=== PATIENT | male | born 1955 | race Caucasian/White ===

== ENCOUNTER 2021-12-14 10:12 | Outpatient (CLI) | payer MEDICARE, OTHER, SELFPAY ==
--- NOTE | 2021-12-14 10:49 | ECG_ITS ---
Measurements Intervals [place] Rate: 46 P: 80 NC: 300 QRS: -28 QRSD: 105 T: 29 QT: 423 QTc: 374 Interpretive Statements SINUS BRADYCARDIA WITH MARKED SINUS ARRHYTHMIA WITH FIRST DEGREE AV BLOCK VENTRICULAR PREMATURE COMPLEX BASELINE ARTIFACT- V4 ABNORMAL ECG NO PREVIOUS ECG AVAILABLE FOR COMPARISON Electronically Signed On 12-14-2021 11:35:51 CDT by Bryon June D.O.
[2021-12-14 11:09] LABS: Hematocrit 46.3 % (42.0-52.0)
[2021-12-14 11:20] LABS: Albumin Level 4.5 g/dL (3.5-5.1); Estimated Glomerular Filt Rate > 60; Glucose 103 mg/dL (65-110)
[2021-12-14 12:08] LABS: Urine Cotinine POSITIVE
[2021-12-14 12:14] LABS: Hemoglobin A1C 5.7 % (<5.7)
== END 2021-12-14 10:13 | disposition home or self-care (01) ==
PROVIDERS: PCP Family Medicine; Visit Provider Orthopaedic Surgery
DX: Z79.899 Other long term (current) drug therapy (principal); M17.12 Unilateral primary osteoarthritis, left knee; Z01.818 Encounter for other preprocedural examination; R94.31 Abnormal electrocardiogram [ECG] [EKG]
CPT/HCPCS: 80307; 82040; 82565; 82947; 83036; 85014; 85018; 93005

== ENCOUNTER 2022-01-24 08:40 | Outpatient (CLI) | payer MEDICARE, SELFPAY ==
[2022-01-24 09:40] LABS: Urine Cotinine NEGATIVE
== END 2022-01-24 08:41 | disposition home or self-care (01) ==
PROVIDERS: PCP Family Medicine; Visit Provider Orthopaedic Surgery
DX: Z79.899 Other long term (current) drug therapy (principal)
CPT/HCPCS: 80307

== ENCOUNTER 2022-02-27 11:38 | Outpatient (CLI) | payer MEDICARE, OTHER, SELFPAY ==
[2022-02-27 13:41] LABS: Basophils Percent Auto 0.6 % (0.2-1.2); Eosinophils Absolute Auto 0.3 K/mm3 (0-0.3); Eosinophils Percent Auto 3.7 % (0-4.4); Hematocrit 44.6 % (42.0-52.0); Hemoglobin 14.8 g/dL (14.0-18.0); Immature Granulocyte Absolute 0.01 K/mm3 (0.00-0.031); Immature Granulocyte Percent A 0.1 % (0-0.5); Lymphocytes Absolute Auto 1.28 K/mm3 (0.9-3.2); Lymphocytes Percent Auto 19.1 % (18.3-44.2); Mean Corpuscular HGB Conc 33.2 g/dl (32-36); Mean Corpuscular Hemoglobin 30.5 pg (26-34); Mean Corpuscular Volume 91.8 fl (80-100); Mean Platelet Volume 10.9 fl (7.4-10.4); Monocytes Absolute Auto 0.5 K/mm3 (0.1-0.6); Monocytes Percent Auto 7.3 % (2.6-8.5); Neutrophils Absolute Auto 4.6 K/mm3 (1.3-6.7); Neutrophils Percent Auto 69.2 % (45.5-73.1); Platelet Count Result 238 k/mm3 (150-375); Red Blood Count 4.86 M/mm3 (4.6-6.20); Red Cell Distribution Width 12.9 % (11.5-14.5); White Blood Count 6.7 K/mm3 (4.5-10.0)
[2022-02-27 13:54] LABS: Albumin Level 4.4 g/dL (3.5-5.1); Estimated Glomerular Filt Rate > 60; Glucose 102 mg/dL (65-110)
[2022-02-27 13:56] LABS: Hemoglobin A1C 5.8 % (<5.7)
== END 2022-02-27 11:39 | disposition home or self-care (01) ==
PROVIDERS: PCP Family Medicine; Visit Provider Orthopaedic Surgery
DX: M17.12 Unilateral primary osteoarthritis, left knee (principal); Z01.818 Encounter for other preprocedural examination
CPT/HCPCS: 36415; 82040; 82565; 82947; 83036; 85025; 87081

== ENCOUNTER 2022-03-27 01:48 | Day surgery (SDC) | payer MEDICARE, OTHER, SELFPAY ==
[2022-02-27 11:58] VITALS: BMI 27.3
--- NOTE | 2022-02-27 12:25 | PC.NURSE ---
Addendum entered by Rhonda Henderson RN 02/27/22 12:30: TOTAL JOINT CLASS 03/08/22 AT 10 AM Original Note: Report to the Outpatient Waiting Room, entrance under the green pavilion located off [address], at time _1000 on date __03/27/22 . Planned Procedure Time: __1200 . Time changes happen often and if your time is changed the preop area will call you the afternoon before. - You and your visitor will be asked to self-screen and do not enter if you have any COVID symptoms. - Only one visitor is requested with a max of two and NO children visitors are allowed at this time. - The patient visitor may be requested to leave or wait in car when not with patient due to distancing restrictions. - A mask is optional within the hospital. Patients may have clear liquids (water, carbonated beverages, clear teas, apple juice) until 3 hours prior to surgery with a maximum of 20 ounces. - No food from midnight until time of surgery - Infants may have breast milk until 4 hours before surgery, infant formula 6 hours prior to surgery. - Children will be allowed to drink immediately following surgery. If applicable, please bring a bottle or sippy cup to assist with drinking. Juice, water, soda, and popsicles are readily available. For infants on formula, please bring formula the day of surgery. Pacifiers are allowed. Take the following medications with a SIP of water the morning of surgery: NONE Medications to discontinue per physician ____PT STATES HOLD ALL VITAMINS AND SUPPLEMENTS 7 DAYS PRE OP PER DR FARLEY Date to take last dose___03/19/22 Please no make-up, nail upper sorbian, hairspray, perfume, deodorant, or body powder the day of surgery. No jewelry (including any body piercings) or valuables the day of surgery, leave them at home. Please take a shower or bath the night before, or the morning of, surgery with an antibacterial soap. Wear comfortable, loose fitting clothing. Children are encouraged to wear pajamas. - Jewelry must be removed prior to entering the operating room. Rings and piercings that are not removed may be cut off. - The hospital will not accept responsibility for valuables. - Please leave all valuables, including medications, at home the day of surgery. If you are going home after surgery, a licensed pile driver engineer must drive you home. - NO public transportation without another adult if you receive anesthesia. - We recommend that an adult stay with you for 24 hours following discharge. - We also recommend that you do not drive, make important decision, drink alcoholic beverages, or take any drugs that were not prescribed by your health care provider for at least 24 hours after your discharge time. For Pediatric surgeries, we recommend two adults accompany the child home. Follow any additional instructions given to you from your surgeon. If you or anyone in your household have experienced Covid symptoms in the past week, please notify your surgeon or the nurse liaison at the phone number below for possible testing. VERBAL AND WRITTEN instructions given to _PATIENT AND Corinna GOMEZ and asked if any additional questions and then verbalized understanding. Patient advised to call surgeon office or pre surgery nurse liaison [phone] if any additional questions.
[2022-02-27 12:44] VITALS: BP 177/89; PULSE 59; RESP 18; TEMP 37.1; O2SAT 97
[2022-03-27] VITALS (12 sets, daily range): BP systolic 119–180; BP diastolic 60–82; PULSE 62–91; RESP 14–23; TEMP 36.2–36.7; O2SAT 94–99
--- NOTE | ~2022-03-27 | XR_ITS ---
EXAM: XR knee LT 2V DATE: 03/27/2022 14:42 HISTORY: left TKA, post op images . COMPARISON: 11/16/2021. FINDINGS: Normal mineralization. Interval left knee total arthroplasty. Arthroplasty components in e xpected position. Postsurgical joint space and soft tissue fluid and gas. No fracture or dislocation. No lytic or blastic lesion. Joint spaces are maintained. No erosion or periosteal change. IMPRESSION: Expected postsurgical changes, with no radiographic evidence of procedure or hardware rel ated complication. Reviewed, dictated and finalized at location K. D HELP IMPRESSION: Expected postsurgical changes, with no radiographic evidence of pro cedure or hardware related complication.
[2022-03-27] MEDS: LACTATED RINGERS 1,000 ML 30 ML IV CONT ×2 (10:25→14:25)
[2022-03-27] MEDS: ACETAMINOPHEN 500 MG TABLET 1000 MG PO (10:28)
[2022-03-27] MEDS: TRANEXAMIC ACID 1,000MG/ISO100 1,000 MG/100 ML BAG 200 MG IVPB (10:47)
--- NOTE | 2022-03-27 11:36 | WPDANESEPPF ---
Anes - Initial Pre Proc Eval Procedure: Operation Date: 03/27/22 12:00 Proposed Procedures p Left Total Knee Arthroplasty - Olvin Lopez MD Date/Time: 03/27/22 11:36 Surgeon: Olvin Lopez MD Pre Op Diagnosis: primary oa left knee Patient Data Age: 66 Gender: M Height: 1.78 m Weight: 83.1 kg Last Vital Signs Temp 36.3 C L 03/27/22 10:42 Pulse 62 03/27/22 10:54 Resp 16 03/27/22 10:42 BP 174/79 H 03/27/22 10:54 Pulse Ox 96 03/27/22 10:42 O2 Del Method Room Air 03/27/22 10:42 Allergies Allergy/AdvReac Type Severity Reaction Status Date / Time No Known Allergies Allergy Verified 03/27/22 10:00 Home Medications Medication Instructions Recorded Confirmed Type Lactobacillus 1 cap PO DAILY 02/27/22 03/27/22 History acidophilus-Bifidobac.animalis 2.5 billion cell capsule (Daily Probiotic) ascorbic acid (vitamin C) 500 mg 500 mg PO DAILY 02/27/22 03/27/22 History capsule garlic 1,000 mg capsule 1,000 mg PO DAILY 02/27/22 03/27/22 History multivitamin with minerals-folic 1 tablet PO DAILY 02/27/22 03/27/22 History acid 0.4 mg tablet Laboratory Tests 03/27/22 10:12 Blood Type A Positive Antibody Screen Pending Patient hx anesthesia problems: none Family hx anesthesia problems: none Results Review: All pre-operative results and documents have been reviewed as part of the pre-operative evaluation. [facility] Surgical History Surgical History (Updated 03/27/22 @ 11:36 by George Rosario MD) History of total knee arthroplasty Family History Family History Grandparent Family history of primary malignant neoplasm of liver Family history of coronary artery disease Social History Social History Smoking packs per day: 2 Smoking cigarettes per day: 40.0 Years smoked: 35 Smoking pack-years: 70.00 Smoking status: Former smoker Tobacco type: cigarettes Smoking end date: 03/19/15 Additional smoking assessment comments: DENIES ANY FORM OF TOBACCO USE Alcohol intake: current Drinks per week: 5 Lack of Transportation: No Lack of Food: Never True Current Housing: I Have Housing Concerned About Future Housing: No Difficulty Paying Gas/Electric Bills: No Difficulty Paying for Meds: No Currently Unemployed: No Education: Trade/Vocational Certificate Difficulty w/ Childcare or Family Care: No Living arrangements: other Spiritual care concerns: No Anes - Eval Final PreProcedure Day of Procedure 03/27/22 11:36 Patient weight: overweight Heart: regular rate and rhythm Lungs: decreased breath sounds Airway: Mallampati scale class II Neurological: alert and oriented Last oral intake: >/= 8 hours ASA classification: III Emergent: no Anesthetic plan: proceed Anesthesia type and monitoring: general LMA and standard monitoring Results Review: All pre-operative results and documents have been reviewed as part of the pre-operative evaluation. Informed Consent: The patient's anesthetic plan and its attendant risks and benefits were discussed with the patient/family/POA. Questions were solicited and answers provided to the satisfaction of the patient/family/POA.
--- NOTE | 2022-03-27 11:43 | WPDHPUPDATE1 ---
History and Physical Update Update Date/Time: 03/27/22 11:43 History and Physical has been reviewed, including an updated exam of the patient. There are NO changes in the patient's condition. Risks, benefits, and alternatives have been discussed and questions answered. Patient agrees to proceed with procedure.
--- NOTE | 2022-03-27 11:59 | WPDANESPNB ---
Anes - Peripheral Nerve Block Date/Time: 03/27/22 11:59 I have discussed with the patient/family/POA the placement of a peripheral nerve block for post-operative pain management, including associated risks, benefits, complications, and side effects. Alternative methods of post-operative analgesia were detailed. Questions were solicited and answers provided to the satisfaction of the patient/family/POA. Time-Out: A pre-procedural Time-Out was completed immediately before starting the procedure and confirmed: Patient Identification, Site, Procedure, Patient Position and the Availability of Requisite Equipment. Clinical Indications: Acute post-operative pain management requested by the operative surgeon. Nerve Block Insertion Note Anes-nerve block: femoral left Patient position: supine Skin prep: chlorhexidine Needle: 22 gauge, stimulating, insulated echogenic needle. Needle length: 50 mm Technique: nerve stimulation lost at (mA) (0.3) Injectate: bupivacaine 0.5% with epi 5 mcg/ml (no epi, 20 cc) Observations: tolerated well Complications: none Procedure start time:: 1155 Procedure end time:: 115
[2022-03-27] MEDS: ceFAZolin 2 GM/D5W 50 ML 2 GM/50 ML BAG IVPB ×2 (12:14→20:44)
[2022-03-27] MEDS: GENTAMICIN BONE CEMENT REFOBACIN 1 EACH TOPICAL (13:33)
[2022-03-27] MEDS: fentaNYL CITRATE INJ (*CRX) 100 MCG/2 ML VIAL 25 MCG IV PUSH ×2 (15:20→15:24)
--- NOTE | 2022-03-27 15:36 | ADMGEN ---
This patient, Syed Esquivel, was admitted to [facility], Room # 11. Patient/family oriented to hospital policies and general routines including ID bracelet, bed and alarms, visiting hours, pain management, procedures, bathroom and other care routines, personal items, smoking policy, room service/diet, and visiting hours. Information on how to activate the Rapid Response Team has been discussed. Patient/Family are encouraged to report perceived risks to care and to ask questions if they do not understand what they are told or what they should do.
[2022-03-27] MEDS: ASPIRIN 81 MG ENTERIC TABLET PO (16:19)
[2022-03-27] MEDS: MELOXICAM 7.5 MG TABLET PO (16:21)
[2022-03-27] MEDS: SENNA/DOCUSATE SODIUM TABLET 2 TAB PO (16:21)
--- NOTE | 2022-03-27 16:27 | W.PM.PROC2 ---
Procedure Note - Detailed Date of Procedure 03/27/22 Pre-op Diagnosis primary oa left knee Post-op Diagnosis Same Procedure Performed Total knee arthroplasty, left. Surgeon Olvin Lopez MD Mobile Lab Technician Ashley Merida PA-C Anesthesia General and Regional (subsartorial block) Findings Excellent bone quality. 6 degree valgus cut due to femoral anatomy. 1.5 mm downsizing of the femur. Slight PCL release from the tibia. Moderate medial release. Description of Procedure The patient was brought to the operating room. A general anesthetic was administered. The leg was prepped and draped in the usual sterile fashion. The limb was elevated and the tourniquet inflated to 300 mmHg during initial exposure. A longitudinal incision was created along the medial border of the patella and patellar tendon, and a trivector approach to the knee was performed. A moderate medial release was taken. The knee was then flexed. The osteophytes were carefully removed. The intramedullary guide was placed in the femoral canal. The distal femoral resection was then taken with the oscillating saw. The collateral ligaments were carefully protected. The tibia was carefully exposed. The jig was applied, and the proximal tibia was resected according to preoperative plan. The knee was balanced in extension. Appropriate releases were taken where needed. The anterior cruciate ligament and meniscal remnants were removed. The posterior cruciate ligament was preserved. The patella was measured. Patellar resection was carried out with the oscillating saw. The lug holes drilled. The femur was sized and rotation assessed using a combination of gap balancing, posterior referencing, and the AP axis. The 4 in 1 cutting block was used to finish the femoral cuts after equal gaps were assured. The osteophytes were carefully removed from the back of the knee. The knee was copiously irrigated with antibiotic solution periodically throughout the procedure. The meniscal remnants were removed. The spacer block was used to confirm equal flexion and extension gaps. Slight additional PCL release was performed. The tibia was sized and broached. The bony surfaces were prepared for cementing with pulsatile lavage. The real tibia was cemented into position. The femur was press-fit. The patella was press-fit. Excess cement was carefully removed. Patellar tracking was carefully assessed. No additional releases were required. Dilute sterile Betadine soak performed for three minutes. Copious irrigation then performed. The wound was closed with #1 Vicryl suture, #2, 2-0, and 3-0 barbed suture, followed by Steri-Strips. A sterile bulky dressing was applied. Meticulous hemostasis was maintained throughout the procedure, and the bipolar cautery device was used. The pain relieving mixture was injected into the periarticular tissues during the procedure. There were no complications. The patient was extubated and brought to the recovery room in stable condition after the application of sterile dressing with Jacob bandage. Implants [employer] Triathlon knee system, low profile cemented tibia size 5, press-fit cruciate retaining femoral component size 5 ,and an 11 mm cruciate retaining polyethylene insert. 38mm asymmetric metal backed tritanium patella component. Estimated Blood Loss -100.0 Drains No Pathology None sent Complications No immediate complications Condition Stable Disposition PACU [facility] Billing Surgery - Charge Forward: Surgery Billing
[2022-03-27] MEDS: SODIUM CHLORIDE 0.9% IV 1,000 ML 125 ML IV CONT (16:31)
[2022-03-27] MEDS: oxyCODONE HCL (*CRX) 5 MG TAB IR PO (20:44)
[2022-03-27] MEDS: FAMOTIDINE 20 MG TABLET PO (20:44)
[2022-03-28] MEDS: oxyCODONE HCL (*CRX) 5 MG TAB IR PO (01:51)
[2022-03-28] MEDS: ceFAZolin 2 GM/D5W 50 ML 2 GM/50 ML BAG IVPB ×2 (04:00→11:02)
[2022-03-28 05:19] VITALS: BP 129/67; PULSE 61; RESP 18; TEMP 36.5; O2SAT 94
--- NOTE | 2022-03-28 07:17 | PM.DS ---
DS: Admitting Diagnosis Discharge Date 03/28/22 Admitting Diagnosis OA knee Left DS: Discharge Diagnosis Discharge Diagnosis (1) Status post total left knee replacement: Code(s): Z96.652 - Presence of left artificial knee joint Status: Acute Assessment and Plan: Postop day 1: Left total knee arthroplasty. Patient tolerated procedure well. No complications. Pain manageable with pain medication. No numbness or tingling. We had a lengthy discussion regarding postoperative wound care, limitations, expectations, and exercises. Patient shows good understanding. He has had initial physical therapy and is tolerating it well. DVT prophylaxis: 81 mg baby aspirin b.i.d. for 14 days. Pain medication: Percocet. Prednisone. Meloxicam. Patient has followup appointment with Dr. Lopez in 3 weeks. DS: Summary Hospital Course Reason for hospitalization: Total knee arthroplasty Hospital Course: Patient tolerated procedure well. Has had initial PT/OT. Status at Discharge Functional status at discharge: uses cane/walker Overall status at discharge: patient is progressing back to baseline Time Spent with Patient Time attestation: Total time spent providing and/or coordinating discharge services: Exam Narrative: 66-year-old overweight male. Resting comfortably in bed. Alert and oriented x3. No acute distress. Wearing compression socks bilaterally. Dressing intact without drainage. Moderate swelling. No ecchymosis. No erythema. No hematoma. Range of motion limited due to pain. Calf nontender. Neurologic status intact. No varicosities. Distal pulses palpable. DS: Data Data Completed and Pending Labs on day of discharge: Labs from last 24 hours 03/27/22 10:12 Blood Type A Positive Antibody Screen Negative Discharge Plan Discharge Patient Disposition: Home, Self-Care Discharge Instructions: See green instruction sheet Stand Alone Forms: General Discharge Instructions Discharge Medications: New meloxicam 15 mg tablet 15 mg PO DAILY Qty: 30 0RF Rx Instructions: Cut in half. Take 1/2 in morning and 1/2 at night. Take with food. Stop if stomach upset. prednisone 5 mg tablet 5 mg PO DAILY 21 Days Qty: 21 0RF aspirin 81 mg tablet,delayed release (DR/EC) 81 mg PO BID 14 Days Qty: 28 0RF oxycodone-acetaminophen 5-325 mg tablet 1 - 2 tablet PO Q4-6H MDD 6 PRN (Reason: pain) Qty: 30 0RF Continued garlic 1,000 mg Capsule 1,000 mg PO DAILY multivit with min-folic acid 0.4 mg Tablet 1 tablet PO DAILY ascorbic acid (vitamin C) 500 mg Capsule 500 mg PO DAILY Daily Probiotic 2.5 billion cell Capsule 1 cap PO DAILY
--- NOTE | 2022-03-28 07:27 | WPDANESPN ---
Anes - Prog Note Post-Op Date/Time: 03/28/22 07:27 Cardiovascular status: normal Respiratory status: normal Airway patency: baseline Mental status: baseline Post-Op hydration status: normal Vital Signs: Last Vital Signs Temp 97.7 F 03/28/22 05:19 Pulse 61 03/28/22 05:19 Resp 18 03/28/22 05:19 BP 129/67 03/28/22 05:19 Pulse Ox 94 03/28/22 05:19 O2 Del Method Room Air 03/27/22 15:15 O2 Flow Rate 8 03/27/22 15:00 Pain Score (VAS): 2-3 I/O: Intake & Output 03/27/22 03/27/22 03/28/22 15:59 23:59 07:59 Intake Total 1300 1644 800 Output Total 500 500 Balance 1300 1144 300 03/27/22 10:12 Blood Type A Positive Antibody Screen Negative Patient Feedback: Patient satisfied with anesthetic care.
[2022-03-28 08:30] VITALS: BP 121/70; PULSE 75; RESP 18; TEMP 37.5; O2SAT 95
--- NOTE | 2022-03-28 08:32 | PC.NURSE ---
per tech patient was back to bed from chair
[2022-03-28] MEDS: predniSONE 5 MG TABLET PO (08:40)
[2022-03-28] MEDS: SENNA/DOCUSATE SODIUM TABLET 2 TAB PO (08:40)
[2022-03-28] MEDS: polyethylene glycoL 3350 17 GM POWD.PACK PO (08:40)
[2022-03-28] MEDS: MELOXICAM 7.5 MG TABLET PO (08:40)
[2022-03-28 08:45] VITALS: PULSE 75; RESP 18; O2SAT 95
[2022-03-28] MEDS: ASPIRIN 81 MG ENTERIC TABLET PO (08:48)
[2022-03-28 09:01] LABS: Basophils Percent Auto 0.3 % (0.2-1.2); Eosinophils Absolute Auto 0.1 K/mm3 (0-0.3); Eosinophils Percent Auto 0.6 % (0-4.4); Hematocrit 36.1 % (42.0-52.0); Immature Granulocyte Absolute 0.04 K/mm3 (0.00-0.031); Immature Granulocyte Percent A 0.3 % (0-0.5); Lymphocytes Absolute Auto 1.19 K/mm3 (0.9-3.2); Lymphocytes Percent Auto 8.9 % (18.3-44.2); Mean Corpuscular HGB Conc 33.2 g/dl (32-36); Mean Corpuscular Volume 93.3 fl (80-100); Mean Platelet Volume 10.6 fl (7.4-10.4); Monocytes Absolute Auto 1.2 K/mm3 (0.1-0.6); Monocytes Percent Auto 8.7 % (2.6-8.5); Neutrophils Absolute Auto 10.9 K/mm3 (1.3-6.7); Neutrophils Percent Auto 81.2 % (45.5-73.1); Platelet Count Result 190 k/mm3 (150-375); Red Blood Count 3.87 M/mm3 (4.6-6.20); Red Cell Distribution Width 13.2 % (11.5-14.5); White Blood Count 13.4 K/mm3 (4.5-10.0)
[2022-03-28 09:11] LABS: Anion Gap 6 mmol/L (8-16); Blood Urea Nitrogen 12 mg/dL (9-20); Calcium 8.4 mg/dL (8.4-10.2); Carbon Dioxide 27 mmol/L (22-30); Chloride 98 mmol/L (98-107); Estimated CRCL calculation 83 ml/min; Estimated Glomerular Filt Rate > 60; Glucose 113 mg/dL (65-110); Sodium 131 mmol/L (137-145)
[2022-03-28] MEDS: FAMOTIDINE 20 MG TABLET PO (09:22)
--- NOTE | 2022-03-28 09:38 | PC.NURSE ---
0930 ice removed and placed bag in freezer. thigh high dante hose applied to left leg and scd applied to left leg. Awaiting knee immobilizer to arrive per Dr. Lopez's order taken by Romario LIBRARY SUPERVISOR.
== END 2022-03-28 11:50 | disposition home or self-care (01) ==
LOC: ANHSURGERY 12:21 → ANHSUROVER 15:28
PROVIDERS: Physician Assistant Surgical; PCP Family Medicine; Visit Provider Orthopaedic Surgery
PROC: (CPT 27447; principal; 2022-03-27 12:00)
DX: M17.12 Unilateral primary osteoarthritis, left knee (principal); G89.18 Other acute postprocedural pain; Z87.891 Personal history of nicotine dependence
CPT/HCPCS: 27447; 64447; 36415; 73560; 80048; 85025; 86850; 86900; 86901; 97110; 97161; 97165; A9270; C1713; C1776; J0171; J0330; J0690; J1100; J1170; J1885; J2250; J2270; J2405; J2704; J2710; J2795; J3010; J7030; J7040; J7120; J7512; L1830

== ENCOUNTER 2023-03-23 12:09 | Outpatient (CLI) | payer MEDICARE, OTHER, SELFPAY ==
--- NOTE | ~2023-03-23 | XR_ITS ---
Left Knee Technique: AP, lateral, and sunrise views were obtained. Clinical History: Arthroplasty Findings: No fracture or dislocation is seen. Left knee arthroplasty in place, without evidence of [employer] complication. Soft tissues are unremarkable. No joint effusion is seen. Impression: No acute abnormality. Left knee arthroplasty. Reviewed, dictated and finalized at location . HYSICAL PARTY CHIEF Impression: No acute abnormality. Left knee arthroplasty.
--- NOTE | ~2023-03-23 | XR_ITS ---
Right Knee Technique: AP, lateral, and sunrise views were obtained. Clinical History: Pain Findings: No fracture or dislocation is seen. Right knee arthroplasty in place, without evidence of h ardware complication. Soft tissues are unremarkable. No joint effusion is seen. Impression: No acute abnormality. Right knee arthroscopy in place. Reviewed, dictated and finalized at location . OUNT CLERK Impression: No acute abnormality. Right knee arthroscopy in place.
== END 2023-03-23 12:10 | disposition home or self-care (01) ==
PROVIDERS: Visit Provider Orthopaedic Surgery
DX: Z96.652 Presence of left artificial knee joint (principal); M25.561 Pain in right knee
CPT/HCPCS: 73564

== ENCOUNTER 2024-10-08 09:52 | Emergency (ER) | payer MEDICARE, OTHER, SELFPAY ==
--- NOTE | ~2024-10-08 | XR_ITS ---
EXAMINATION: XR chest 2V 10/08/2024 13:04 INDICATION: Evaluate for foreign body. PROCEDURE: 2 view chest COMPARISON: 01/04/2009 FINDINGS: The lungs are clear. The cardiomediastinal silhouette is within normal limits. There are no pleural effusions. There is no pneumothorax suspected. IMPRESSION: 1: NO ACUTE CARDIOPULMONARY DISEASE. Reviewed, dictated and finalized at location A.
--- NOTE | ~2024-10-08 | XR_ITS ---
XR abdomen/kub 1V 10/08/2024 13:04 Indication: Rule out foreign object Procedure: KUB Comparison: No prior studies for comparison. Findings: Bowel gas pattern nonobstructive. Lung bases unremarkable. Moderate colonic fecal loading. No radiopaque foreign bodies identified. Postoperative changes present in the left acetabulum. There is osteoarthritis of the hips. Impression: 1: No acute abdominal abnormality. No radiopaque foreign bodies. Reviewed, dictated and finalized at location A. Impression: 1: No acute abdominal abnormality. No radiopaque foreign bodies.
--- OUTSIDE RECORDS SUMMARY | 2024-10-08 09:55 | XMS_ITS | Clinical Summary ---
Author Organization [facility] [place] [facility] lt Address [address] [place] [address] Care Team Providers Care Marble Installation Helper Name Role Phone Amaury Mancuso MD Primary Care Provider [phone] Allergies No known active allergies Medications multivitamin tabletIndications :Vitamin Deficiency Prevention Take 1 tablet by mouth daily Active aspirin 81 mg enteric coated tablet Take 1 tablet (81 mg total) by mouth daily Active garlic 500 mg capsule Take 1 capsule by mouth daily Active cetirizine (ZyrTEC) 10 mg tablet Take 1 tablet (10 mg total) by mouth daily Active lisinopriL (PRINIVIL,ZESTRIL ) 20 mg tabletIndications :Primary hypertension TAKE 1 TABLET(20 MG) BY MOUTH DAILY 90 tablet 1 Active Active Problems Problem Noted Date Diagnosed Date Screening for colon cancer 07/23/2024 Cigarette smoker 01/21/2024 Assessment & Plan (01/21/2024 12:50 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 Radiologist has recommended follow-up CT scan in 6 months which will be in December. Patient has no respiratory symptoms at this time. Need for hepatitis C screening test 07/26/2023 Assessment & Plan (07/26/2023 10:46 AM CDT): Patient's risk for hepatitis-C multiple family members from cancer including liver cancer. Reviewed with this gentleman connection between hepatitis-C and liver cancer. Personal history of nicotine dependence 06/20/19 Medicare welcome exam 06/19/2023 Assessment & Plan (06/19/2023 6:33 PM CDT): 68-year-old gentleman who has a new patient to me. Recently noticed his blood pressure is elevated in his consistent with hypertension. Otherwise feels well he is past history of bilateral knee replacements. He has on no medications. 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 Some aches and pains not severe. He quit smoking approximately 2 years ago he has a candidate for low-dose CT scan for lung cancer. Patient will consider what methodology of colon cancer screening. Patient basically normal with bradycardia 59. Impacted cerumen of left ear 06/19/2023 Assessment & Plan (06/19/2023 6:32 PM CDT): Partial removal of cerumen impaction left ear will removed remainder of the cerumen impaction on follow-up visit if need be patient is given Debrox to use in the meantime Primary hypertension 06/19/2023 Assessment & Plan (01/21/2024 12:48 PM FARM MANAGEMENT TEACHER): Blood pressure well controlled patient is tolerating medications renal functions on continue lisinopril 20 mg daily. Assessment & Plan (07/27/2023 3:54 PM CDT): Patient's blood pressures improved now at goal his blood pressure 138/76. Previous visit was 162/74. Will continues gentleman lisinopril 20 mg daily he is tolerating medications. Assessment & Plan (06/19/2023 6:32 PM CDT): Pressure at home consistently running [id number] systolic diastolic running 80-90. Start this patient on lisinopril 20 mg per day see him back in 4-6 weeks. CMP fasting lipid profile request Encounters Date Type Department Care Team Description 07/23/2024 Telephone [facility] [place] [address] [place] [id number] Candi Agee LPN 07/22/2024 10:30 AM CDT Office Visit [facility] [address] [place] [id number] Amaury Mancuso MD Screening for colon cancer (Primary Dx); Lung nodules; Personal history of nicotine dependence 07/14/2024 10:20 AM CDT Lab [facility] [address] [place] [address] Preventative health care from Last 3 Months Immunizations Immunization Administration Dates Next Due Influenza, Unspecified 01/21/2024(Deferred: Lenka ent Refused) Pfizer SARS-CoV-2 Monovalent Vaccination (12+ Yrs) PURPLE 06/03/2020,05/15/2020 Pneumococcal Conjugate, Unspecified 08/20/2023 Tdap 08/12/2015,01/02/2010 ZOSTER Recombinant 08/20/2023,06/20/2023 Surgical History Surgery Date Site/Laterality Comments REPLACEMENT TOTAL KNEE 03/19/2016 - 03/18/2017 Right HIP FRACTURE SURGERY Medical History Medical History Date Comments No pertinent past medical history Family History Medical History Relation Name Comments Cancer Brother Heart disease Mother Relation Name Status Comments Brother Father Mother Sister Alive Social History Tobacco Use Types Packs/Day Years Used Date Smoking Tobacco: Former Smokeless Tobacco: Never Tobacco Cessation:Counseling Given: Not Answered PHQ-2 Answer Date Recorded PHQ-2 Total Score (If total score is 3 or more points, staff should administer the PHQ-9) 0 07/22/2024 Sex and Gender Information Value Date Recorded Sex Assigned at Not on file Legal Sex Male 11:56 PM FARM MANAGEMENT TEACHER Gender Identity Not on file Sexual Orientation Not on file Obstetrics History Last Filed Vital Signs Vital Sign Reading Time Taken Comments Blood Pressure 154/86 07/22/2024 10:42 AM CDT Pulse 60 07/22/2024 10:42 AM CDT Temperature 36.8 C (98.2 F) 07/22/2024 10:42 AM CDT Respiratory Rate 16 07/22/2024 10:42 AM CDT Oxygen Saturation 95% 07/22/2024 10:42 AM CDT Inhaled Oxygen Concentration - - Weight 92.8 kg (204 lb 9.6 oz) 07/22/2024 10:42 AM CDT Height 177.8 cm (5' 10) 07/22/2024 10:42 AM CDT Body Mass Index 29.36 07/22/2024 10:42 AM CDT Plan of Treatment Upcoming Encounters Date Type Department Care Team (Late st Contact Info) Description 01/06/2025 11:00 AM CDT Hospital Encounter [address] [address] Heriberto Gama DO [address] [facility] [place] [address] 01/06/2025 11:00 AM CDT - 01/06/2025 11:30 AM CDT Surgery [address] [address] Heriberto Gama DO [address] [facility] [address] [place] [address] [place] [id number] COLONOSCOPY Scheduled Procedures Name Priority Associated Diagnoses Date/Ti me COLONOSCOPY Screening for colon cancer 01/06/2025 11:00 AM CDT Health Maintenance Due Date Last Done Comments Colon Cancer Screening-Colonoscopy 1955 Covid-19 Vaccine (2023-2 5 season) 2023 05/23/2022, 12/18/2020, 06/03/2020, Additional history exists Pneumococcal vaccine 65+ (2 of 2 - PPSV23) 08/19/2024 08/20/2023 Influenza Vaccine (#1) 2024 Lung Cancer Screening 01/10/2025 01/10/2024, 024 Prostate Cancer Screening-PSA 06/18/2025 06/19/2023 Depression Screening 07/22/2025 07/22/2024, 06/19/19 24 Fall Risk Assessment 07/22/2025 07/22/2024, 06/19/19 24 Well Visit 65+ 07/22/2025 07/22/2024, 06/19/2023 DTaP/Tdap/Td Vaccine (3 - Td or Tdap) 08/11/2025 08/12/2015, 01/02/2010 Abdominal Aortic Aneurysm (A AA) Screen Completed 06/20/2023 Hepatitis C Screening Completed 07/26/2023 Zoster Vaccine Completed 08/20/2023, 06/20/2023 Hepatitis B Screening Discontinued Procedures Procedure Name Priority Date/Time Associated Diagnosis Comments EGFR Routine 07/14/2024 10:25 AM CDT Preventative health care LIPID PANEL Routine 07/14/2024 10:25 AM CDT Preventative health care BASIC METABOLIC PANEL Routine 07/14/2024 10:25 AM CDT Preventative health care CT CHEST WO CONTRAST F/U LUNG SCREEN PROTOCOL Schedule Routine, Read Routine (OP Routine) 01/10/2024 6:58 AM CDT Lung nodules HEPATITIS C ANTIBODY Routine 07/26/2023 10:40 AM CDT Need for hepatitis C screening test US ABDOMINAL AORTIC ANEURYSM SCREENING Schedule Routine, Read Routine (OP Routine) 06/20/2023 3:54 PM CDT Personal history of nicotine dependence Encounter for abdominal aortic aneurysm (AAA) screening PSA SCREEN Routine 06/19/2023 4:05 PM CDT Medicare welcome exam Prostate cancer screening Preventative health care from Last 3 Months or Most Recently Relevant to Health Maintenance Results * eGFR (07/14/2024 10:25 AM CDT) eGFR >90 >=60 mL/min/1. 73 m2 Comment: Interpretive Data Reference Interval Normal >/= 90 mL/min/1.73m2 Mildly decreased* 60 - 89 mL/min/1.73m2 Mildly to moderately decreased 45 - 59 mL/min/1.73m2 Moderately to severely decreased 30 - 44 mL/min/1.73m2 Severely decreased 15 - 29 mL/min/1.73m2 Kidney Failure < 15 mL/min/1.73m2 *Relative to young adult level Estimated glomerular filtration rate is determined by the 2020 CKD-EPI equation recommended by the National Kidney Foundation (A Unifying Approach to GFR Estimation: Recommendations of the NKF-ASK Task Force on Reassessing the Inclusion of Race in Diagnosing Kidney Disease, JASN 2020). The CKD-EPI equation should not be used for patients with unstable renal function and has not been validated in children and those over 70. Current interpretive data was last reviewed 2021. Testing performed by: [facility], [address] [place] [address]., [id number] Blood 07/14/2024 10:2 5 AM CDT 07/14/2024 8:51 PM CDT Amaury Mancuso MD LAB BLOOD ORDERABLES Final Result [facility] [address] Department of Laboratories [place], [place] [id number] * Lipid panel (07/14/2024 10:25 AM CDT) Cholesterol 183 30 - 199 mg/dL Comment: Interpretive Data Ages < or = 19 years Acceptable: <170 mg/dL Borderline high: 170-199 mg/dL High: >or= 200 mg/dL Ages > or = 20 years Desirable: <200 mg/dL Borderline high: 200-239 mg/dL High: >or= 240 mg/dL Literature References: 1. Expert Panel on Integrated Guidelines for Cardiovascular Health and Risk Reduction in Children and Adolescents. Pediatrics 2011;128:S213 2. NCEP Expert Panel. Circulation 2004;110:227 Current Interpretive Data was last revised on 2017. Testing performed by: [address] [address] Triglycerides 99 <=149 mg/dL [facility] ARENAS Comment: Interpretive Data Ages < or = 9 years Acceptable: <75 mg/dL Borderline high: 75-99 mg/dL High: >or= 100 mg/dL Ages 10 to 20 years Acceptable: <90 mg/dL Borderline high: 90-129 mg/dL High: >or= 130 mg/dL Ages > or = 20 years Desirable: <150 mg/dL Borderline high: 150-199 mg/dL High: 200-499 mg/dL Very high: >or= 499 mg/dL Literature References: 1. Expert Panel on Integrated Guidelines for Cardiovascular Health and Risk Reduction in Children and Adolescents. Pediatrics 2011;128:S213 2. NCEP Expert Panel. Circulation 2004;110:227 Current Interpretive Data was last revised on 2017. Testing performed by: [facility], [address] [place] [address]., [address] HDL 56 >=40 mg/dL [facility] Comment: Interpretive Data Ages < or = 19 years Acceptable: >45 mg/dL Borderline low: 40-45 mg/dL Low: <40 mg/dL Ages > or = 20 years Desirable: >or= 60 mg/dL Low: <40 mg/dL Literature References: 1. Expert Panel on Integrated Guidelines for Cardiovascular Health and Risk Reduction in Children and Adolescents. Pediatrics 2011;128:S213 2. NCEP Expert Panel. Circulation 2004;110:227 Current Interpretive Data was last revised on 2017. Testing performed by: [facility], [address] [place] [address]., [address] LDL, calculated 109 <=129 mg/dL [facility] Comment: Interpretive Data Ages < or = 19 years Acceptable: <110 mg/dL Borderline high: 110-129 mg/dL High: >or= 130 mg/dL Ages > or = 20 years Optimal: <100 mg/dL Near optimal: 100-129 mg/dL Borderline high: 130-159 mg/dL High: >160 mg/dL Calculated using the Venancio LDL-C estimating equation. This equation was implemented on 2023. Prior to this date LDL-C was estimated using the Friedewald equation. Literature References: 1. Expert Panel on Integrated Guidelines for Cardiovascular Health and Risk Reduction in Children and Adolescents. Pediatrics 2011;128:S213 2. NCEP Expert Panel. Circulation 2004;110:227 3. Venancio Singh et al. WILBERT Cardiol. 2020 July 17;5(5):540-548. doi: 10.1001/jamacardio.2020.0013 Current Interpretive Data was last revised on 2023. Testing performed by: [address] [address] Non-HDL Cholesterol 127 mg/dL [facility] Comment: Interpretive Data Ages < or = 19 years Acceptable: <120 mg/dL Borderline high: 120-144 mg/dL High: >145 mg/dL Ages > or = 20 years When triglycerides are >200 mg/dL, Non-HDL cholesterol is a secondary target of therapy with treatment goals that are 30 mg/dL greater than the LDL cholesterol target. Literature References: 1. Expert Panel on Integrated Guidelines for Cardiovascular Health and Risk Reduction in Children and Adolescents. Pediatrics 2011;128:S213 2. NCEP Expert Panel. Circulation 2004;110:227 Current Interpretive Data was last revised on 2017. Testing performed by: [address] [address] Chol/HDL ratio 3 DONALDONER Comment:Testing performed by : [address] [address] Blood 07/14/2024 10:2 5 AM CDT 07/14/2024 8:34 PM CDT Amaury Mancuso MD LAB BLOOD ORDERABLES Final Result [facility] [address] Department [place] [address] * (ABNORMAL) Basic metabolic panel (07/14/2024 10:25 AM CDT) [facility] Signature Sodium 133(L) 135 - 145 mmol/L Comment:Testing performed by : [address] [address] Potassium, pl 4.9 3.3 - 4.9 mmol/L [facility] Comment:Testing performed by : [address] [address] Chloride 97 97 - 110 mmol/L [facility] Comment:Testing performed by : [address] [address] CO2 26 22 - 32 mmol/L [facility] Comment:Testing performed by : [address] [place]., [address] Anion gap 10 2 - 15 mmol/L [facility] Comment:Testing performed by : [address] [address] BUN 13 6 - 25 mg/dL [facility] Comment:Testing performed by : [address] [address] Creatinine 0.82 0.80 - 1.30 mg/dL [facility] Comment:Testing performed by : [address] [address] Glucose 108 70 - 199 mg/dL [facility] Comment: Interpretive Data Fasting glucose >/= 126 mg/dl is diagnostic for diabetes. Fasting is defined as no caloric intake for at least 8 hours. Fasting glucose between 100 mg/dl to 125 mg/dl is diagnostic of prediabetes. In a patient with classic symptoms of hyperglycemia or hyperglycemic crisis, a random glucose >/= 200 mg/dl is diagnostic for diabetes. In the absence of unequivocal hyperglycemia, results should be confirmed by repeat testing. The classification and Diagnosis of Diabetes Diabetes Care 2021; 46: S19-S40. Current interpretive data was last revised 2022. Testing performed by: [facility], [address] [place] [address]., [address] Calcium 9.5 8.5 - 10.3 mg/dL [facility] Comment:Testing performed by : [address] [address] Blood 07/14/2024 10:2 5 AM CDT 07/14/2024 8:34 PM CDT Amaury Mancuso MD LAB BLOOD ORDERABLES Final Result [address] Department [place] [address] * CT Chest WO Contrast F/U Lung Screen Protocol (01/10/2024 6:58 AM CDT) Anatomical Region Laterality Modality Chest N/A Computed Tomogra phy 01/14/2024 9:53 AM CDT Narrative 01/14/2024 10:28 AM CDT EXAM DESCRIPTION: CT CHEST WO CONTRAST F/U LUNG SCREEN PROTOCOL REASON FOR STUDY: Screening CT of the chest in a former smoker with a 80 pack year smoking history. Additional history: The patient stopped smoking 2 years ago. TECHNIQUE: Low dose CT scan of the chest was performed without intravenous contrast using helical scanning technique. The exam extends from the lung apices through the lung bases. Automatic exposure control was used as a dose optimization technique. NOTE: This study was performed for the specific purposes of lung cancer screening and is not an alternative to diagnostic chest CT. RADIATION DOSE: CT dose index volume (CTDIvol) = 1.90 mGy COMPARISON: CT chest 07/11/2023 FINDINGS: SMOKING RELATED LUNG DISEASE: Mild upper lobe predominant pulmonary emphysema. Stable biapical scarring. Stable scarring in the inferior right middle lobe. LUNG NODULES: The previously described 3 mm nodule in the lateral right upper lobe is not seen. Stable 2 mm nodule, possibly a calcified granuloma in the central right upper lobe (77). Stable 6 mm pleural-based nodule in the medial right upper lobe (158). Stable 3 mm nodule along the left major fissure (84). CORONARY ARTERY CALCIFICATION: Mild. OTHER: No focal consolidation, pneumothorax, or pleural effusion. The central airways are clear. No mediastinal mass. Calcified mediastinal lymph nodes consistent with prior granulomatous disease. The heart is normal in size. No pericardial effusion. Mild atherosclerotic calcifications of the thoracic aorta. No thoracic aortic aneurysm. No acute fractures or suspicious osseous lesions. The visualized upper abdomen is normal. IMPRESSION: Stable lung nodules measuring up to 6 mm. No new suspicious nodules. Mild pulmonary emphysema. Lung-RADS category 2: Benign appearance or behavior. Recommendation: Low dose Screening CT of chest in 12 months. THIS IS AN ELECTRONICALLY VERIFIED FINAL REPORT 01/14/2024 10:28 AM - Electronically signed by Manoj Zarate M.D. KR: BRIAN Report ID: [id number] Reading Location: [id number] Procedure Note Manoj Zarate MD - 01/14/2024 EXAM DESCRIPTION: CT CHEST WO CONTRAST F/U LUNG SCREEN PROTOCOL REASON FOR STUDY: Screening CT of the chest in a former smoker with a80 pack year smoking history. Additional history: The patient stopped smoking2 years ago. TECHNIQUE: Low dose CT scan of the chest was performed without intravenous contrast using helical scanning technique. The exam extends from the lung apices through the lung bases. Automatic exposure control was used as adose optimization technique. NOTE: This study was performed for the specific purposes of lung cancer screening and is not an alternative to diagnostic chest CT. RADIATION DOSE: CT dose index volume (CTDIvol) = 1.90 mGy COMPARISON: CT chest 07/11/2023 FINDINGS: SMOKING RELATED LUNG DISEASE: Mild upper lobe predominant pulmonary emphysema. Stable biapical scarring. Stable scarring in the inferiorright middle lobe. LUNG NODULES: The previously described 3 mm nodule in the lateral right upper lobe is not seen. Stable 2 mm nodule, possibly a calcified granuloma in the central rightupper lobe (77). Stable 6 mm pleural-based nodule in the medial right upper lobe (158). Stable 3 mm nodule along the left major fissure (84). CORONARY ARTERY CALCIFICATION: Mild. OTHER: No focal consolidation, pneumothorax, or pleural effusion. The central airways are clear. No mediastinal mass. Calcified mediastinallymph nodes consistent with prior granulomatous disease. The heart is normal in size. No pericardial effusion. Mild atherosclerotic calcifications ofthe thoracic aorta. No thoracic aortic aneurysm. No acute fractures or suspicious osseous lesions. The visualized upper abdomen is normal. IMPRESSION: Stable lung nodules measuring up to 6 mm. No new suspicious nodules. Mild pulmonary emphysema. Lung-RADS category 2: Benign appearance or behavior. Recommendation: Low dose Screening CT of chest in 12 months. THIS IS AN ELECTRONICALLY VERIFIED FINAL REPORT 01/14/2024 10:28 AM - Electronically signed by Manoj Zarate M.D. KR: BRIAN Report ID: [id number] Reading Location: [id number] Amaury Mancuso MD IMG CT PROCEDURES Final Re sult * Hepatitis C antibody Blood (07/26/2023 10:40 AM CDT) Hep C Ab Nonreactive Nonreactive Comment: Interpretive Data Nonreactive: Antibodies to HCV not detected. Does NOT exclude the possibility of recent exposure to HCV. Equivocal: Equivocal for HCV antibodies. Supplemental molecular testing will be automatically performed to determine infection status in accordance with current CDC screening recommendations. Reactive: Positive for HCV antibodies. This may represent current or past HCV infection. Supplemental molecular testing will be automatically performed to determine current infection status in accordance with current CDC screening recommendations. Interpretive data was last revised on 2019. Testing performed by: [facility], [address] [place] [address]., [id number] Blood 07/26/2023 10:4 0 AM CDT 07/26/2023 5:10 PM CDT us Amaury Mancuso MD LAB MICROBIOLOGY - GENERAL ORDERABLES Final Result [facility] [address] [place] [address] * US Abdominal Aortic Aneurysm Screening (06/20/2023 3:54 PM CDT) Anatomical Region Laterality Modality Abdomen Ultrasound 06/21/2023 12:0 5 PM CDT Narrative 06/21/2023 12:06 PM CDT EXAM DESCRIPTION: US ABDOMINAL AORTIC ANEURYSM SCREENING REASON FOR STUDY: Abdominal aortic aneurysm screening. Patient is a former smoker with a history of hypertension. TECHNIQUE: Grayscale images acquired of the aorta and stored on PACS. Selected color Doppler and spectral images recorded. COMPARISON: None FINDINGS: AORTIC CALIBER MAXIMAL PROXIMAL: 2.3 x 2.8 cm. MID: 2.0 x 2.2 cm. DISTAL: 1.7 x 2.3 cm. ILIAC DIAMETER RIGHT: 0.9 x 1.0 cm. LEFT: 0.9 x 1.0. cm. OTHER: None IMPRESSION: No abdominal aortic aneurysm. REFERENCE: Please see below follow up recommendations for abdominal aortic aneurysm surveillance per Society for Vascular Surgery Guidelines: < 2.5 cm No follow up or future screenings necessary 2.52.9 cm Recommended ultrasound follow up every 10 years 3.0-3.9 cm Recommended ultrasound follow up every 3 years 4.0-4.9 cm Recommended ultrasound follow up every 12 months, vascular surgery consult 5.0-5.4 cm Recommended ultrasound follow up every 6 months, vascular surgery consult >= 5.5 cm Referral to vascular surgeon Based upon Society for Vascular Surgery Guidelines: J Vasc Surgery 2009 Oct 50: s2s49; updated Mar 2017 J Vasc Surgery 67:277 THIS IS AN ELECTRONICALLY VERIFIED FINAL REPORT 06/21/2023 12:06 PM - Electronically signed by Kaelyn Mccullough M.D. TW: BRETT Report ID: [id number] Reading Location: [id number] Procedure Note Kaelyn Mccullough MD - 06/21/2023 EXAM DESCRIPTION: US ABDOMINAL AORTIC ANEURYSM SCREENING REASON FOR STUDY: Abdominal aortic aneurysm screening. Patient is aformer smoker with a history of hypertension. TECHNIQUE: Grayscale images acquired of the aorta and stored on PACS.Selected color Doppler and spectral images recorded. COMPARISON: None FINDINGS: AORTIC CALIBER MAXIMAL PROXIMAL: 2.3 x 2.8 cm. MID: 2.0 x 2.2 cm. DISTAL: 1.7 x 2.3 cm. ILIAC DIAMETER RIGHT: 0.9 x 1.0 cm. LEFT: 0.9 x 1.0. cm. OTHER: None IMPRESSION: No abdominal aortic aneurysm. REFERENCE: Please see below follow up recommendations for abdominal aortic aneurysm surveillance per Society for Vascular Surgery Guidelines: < 2.5 cm No follow up or future screenings necessary 2.52.9 cm Recommended ultrasound follow up every 10 years 3.0-3.9 cm Recommended ultrasound follow up every 3 years 4.0-4.9 cm Recommended ultrasound follow up every 12 months, vascularsurgery consult 5.0-5.4 cm Recommended ultrasound follow up every 6 months, vascularsurgery consult >= 5.5 cm Referral to vascular surgeon Based upon Society for Vascular Surgery Guidelines: J Vasc Surgery 2009Oct 50: s2s49; updated Mar 2017 J Vasc Surgery 67:277 THIS IS AN ELECTRONICALLY VERIFIED FINAL REPORT 06/21/2023 12:06 PM - Electronically signed by Kaelyn Mccullough M.D. TW: BRETT Report ID: [id number] Reading Location: [id number] us Amaury Mancuso MD IMG US PROCEDURES Final Re sult * PSA screen (06/19/2023 4:05 PM CDT) PSA-Total 2.12 <=5.40 ng/mL Comment: Interpretive Data AGE SEX REFERENCE INTERVAL 0 minutes-150 years Female None 0 minutes-49 years Male None 50-59 years Male 0-3.90 60-69 years Male 0-5.40 70-79 years Male 0-6.20 80-150 years Male 0-6.20 The Yuliana PSA Total assay procedure was used. Results from different manufacturers or methods may not be comparable. Serial testing should be performed using the same method. Current interpretive data last revised 21. Testing performed by: [facility], [address] [place] [address]., [id number] Blood 06/19/2023 4:05 PM CDT 06/19/2023 9:26 PM CDT us Amaury Mancuso MD LAB BLOOD ORDERABLES Final Result [facility] [address] Department of Laboratories [place] [phone] from Last 3 Months or Most Recently Relevant to Health Maintenance Insurance MEDICARE [facility] Care Teams Marble Installation Helper Relationship Specialty Start Date End Date Amaury Mancuso MD PCP - General Internal Medicine 06/18/23
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
--- OUTSIDE RECORDS SUMMARY | 2024-10-08 09:55 | XMS_ITS | Referral Summary ---
Author Organization [facility] [address] lt Address [address] [place] [address] Care Team Providers Care Boat Repairer Name Role Phone Amaury Mancuso MD Primary Care Provider [phone] Encounters Date Type Department Care Team Description 07/23/2024 Telephone [facility] [place] [address] [place] [phone] Candi Agee LPN 07/22/2024 10:30 AM CDT Office Visit [facility] Medical [facility] [address] [place] [phone] Amaury Mancuso MD Screening for colon cancer (Primary Dx); Lung nodules; Personal history of nicotine dependence 07/14/2024 10:20 AM CDT Lab [facility] [address] [place] [address] Preventative health care from Last 3 Months Allergies No known active allergies Medications multivitamin [...] MG) BY MOUTH DAILY 90 tablet 1 4 Active Active Problems Problem Noted Date Diagnosed Date Screening for colon cancer 07/23/2024 Cigarette smoker 01/21/2024 Assessment & Plan (01/21/2024 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 Some aches and pains not severe. He [...] 06/19/2023 Assessment & Plan (01/21/2024 12:48 PM SHIPWRIGHT SUPERVISOR): Blood pressure well controlled patient is tolerating medications renal functions on continue lisinopril 20 mg daily. Assessment & Plan (07/27/2023 3:54 PM CDT): Patient's blood pressures improved now at goal his blood pressure 138/76. Previous visit was 162/74. Will continues gentleman lisinopril 20 mg daily he is tolerating medications. Assessment & Plan (06/19/2023 6:32 PM CDT): Pressure at home consistently running [address] systolic diastolic running 80-90. Start this patient on lisinopril 20 mg per day see him back in 4-6 weeks. CMP fasting lipid profile request Immunizations Immunization Administration Dates Next Due Influenza, Unspecified 01/21/2024(Deferred: Lenka ent Refused) [employer] SARS-CoV-2 Monovalent Vaccination (12+ Yrs) PURPLE 06/03/2020,05/15/2020 Pneumococcal Conjugate, Unspecified 08/20/2023 Tdap 08/12/2015,01/02/2010 ZOSTER Recombinant 08/20/2023,06/20/2023 Social History Tobacco Use Types Packs/Day Years Used Date Smoking Tobacco: Former Smokeless Tobacco: Never Tobacco Cessation:Counseling Given: Not Answered PHQ-2 Answer Date Recorded PHQ-2 Total Score (If total score is 3 or more points, staff should administer the PHQ-9) 0 07/22/2024 Sex and Gender Information Value Date Recorded Sex Assigned at Not on file Legal Sex Male 11:56 PM SHIPWRIGHT SUPERVISOR Gender Identity Not on file Sexual Orientation [...] Description 01/06/2025 11:00 AM CDT Hospital Encounter [address] [address] Heriberto Gama, [address] [place] [address] 01/06/2025 11:00 AM CDT - 01/06/2025 11:30 AM CDT Surgery [address] [address] Heriberto Gama DO [address] [place] [address] COLONOSCOPY Scheduled Procedures Name Priority Associated Diagnoses Date/Ti me COLONOSCOPY Screening for colon cancer 01/06/2025 11:00 AM CDT Procedures Procedure Name Priority Date/Time Associated Diagnosis [...] was last reviewed 2021. Testing performed by: [facility], [address] [place] [address]., [id number] Blood 07/14/2024 10:2 5 AM CDT 07/14/2024 8:51 PM CDT us Amaury Mancuso MD LAB BLOOD ORDERABLES Final Result [facility] [address] [facility] Department [place] [address] * Lipid panel (07/14/2024 10:25 AM CDT) [...] last revised on 2017. Testing performed by: [facility], [address] [place] [address]., [address] Triglycerides 99 <=149 mg/dL [facility] Comment: Interpretive Data Ages < or = [...] last revised on 2017. Testing performed by: [facility], [address] [place] [address]., [id number] HDL 56 >=40 mg/dL [facility] Comment: Interpretive Data Ages < or = [...] last revised on 2017. Testing performed by: [address] [address] LDL, calculated 109 <=129 mg/dL [facility] Comment: Interpretive Data Ages < or = [...] last revised on 2023. Testing performed by: [address] [address] Non-HDL Cholesterol 127 mg/dL [facility] Comment: Interpretive Data Ages [...] last revised on 2017. Testing performed by: [address] [address] Chol/HDL ratio 3 [facility] Comment:Testing performed by : [address] [address] Blood 07/14/2024 10:2 5 AM CDT 07/14/2024 8:34 PM CDT us Amaury Mancuso MD LAB BLOOD ORDERABLES Final Result [facility] [address] Department [place] [address] * (ABNORMAL) Basic metabolic panel (07/14/2024 10:25 AM CDT) Sodium 133(L) 135 - 145 mmol/L Comment:Testing performed by : [facility], [address] [place] [address]., [address] Potassium, pl 4.9 3.3 - 4.9 mmol/L [facility] Comment:Testing performed by : [facility], [address] [place] [address]., [address] Chloride 97 97 - 110 mmol/L [facility] CH Comment:Testing performed by : [facility], [address] [place] [address]., [address] CO2 26 22 - 32 mmol/L [facility] CH Comment:Testing performed by : [facility], [address] [place] [address], [address] Anion gap 10 2 - 15 mmol/L [facility] Comment:Testing performed by : [facility], [address] [place] [address], [address] BUN 13 6 - 25 mg/dL [facility] CH Comment:Testing performed by : [facility], [address] [place] [address], [address] Creatinine 0.82 0.80 - 1.30 mg/dL [facility] Comment:Testing performed by : [facility], [address] [place] [address], [address] Glucose 108 70 - 199 mg/dL [facility] Comment: Interpretive Data Fasting glucose >/= 126 [...] classification and Diagnosis of Diabetes Diabetes Care 202; 46: S19-S40. Current interpretive data was last revised 2022. Testing performed by: [facility], [address] [place] [address]., [address] Calcium 9.5 8.5 - 10.3 mg/dL [facility] Comment:Testing performed by : [address], [address] Blood 07/14/2024 10:2 5 AM CDT 07/14/2024 8:34 PM CDT us Amaury Mancuso MD LAB BLOOD ORDERABLES Final Result [facility] [address] [place] [address] * CT Chest WO Contrast F/U Lung [...] Electronically signed by Manoj Zarate M.D. KR: KR Report ID: [id number] Reading Location: [place] [address] Procedure Note Manoj Zarate MD - 01/14/2024 [...] Electronically signed by Manoj Zarate M.D. KR: KR Report ID: [id number] Reading Location: [place] [address] Amaury Mancuso MD IMG CT PROCEDURES Final [...] last revised on 2019. Testing performed by: [facility], [address] [place] [address]., [address] Blood 07/26/2023 10:4 0 AM CDT 07/26/2023 5:10 PM CDT Amaury Mancuso MD LAB MICROBIOLOGY - GENERAL ORDERABLES Final Result Performing Organization Address City/State/[facility] Co de Phone Number [facility] [address] [facility] [place] [address] * US Abdominal Aortic Aneurysm Screening (06/20/2023 [...] for Vascular Surgery Guidelines: J Vasc Surgery 2008 50: [id number]; updated Mar 2017 J Vasc Surgery 67:277 THIS IS AN ELECTRONICALLY VERIFIED FINAL REPORT 06/21/2023 12:06 PM - Electronically signed by Kaelyn Mccullough M.D. TW: BRETT Report ID: [id number] Reading Location: [id number] Procedure Note Kaelyn Mccullough MD - 06/21/2023 [...] Kaelyn Mccullough M.D. TW: BRETT Report ID: [id number] Reading Location: [place] [address] us Amaury Mancuso MD IMG US PROCEDURES [...] data last revised 21. Testing performed by: [facility], [address] [place] [address]., [address] Blood 06/19/2023 4:05 PM CDT 06/19/2023 9:26 PM CDT us Amaury Mancuso MD LAB BLOOD ORDERABLES Final Result [facility] [address] [facility] [place] [address] from Last 3 Months or Most Recently Relevant to Health Maintenance Insurance MEDICARE [facility] Care Teams Boat Repairer Relationship Specialty Start Date End Date Amaury Mancuso MD PCP - General Internal Medicine 06/18/23
[2024-10-08 09:56] VITALS: BP 177/65; PULSE 53; RESP 16; TEMP 36.6; O2SAT 99
--- NOTE | 2024-10-08 12:42 | ED_ITS ---
HPI - Skin/Abscess/Foreign Bdy General Chief complaint: Skin/Abscess/Foreign Body Stated complaint: possibly ingested a qtip? Time Seen by Provider: 10/08/24 12:04 History of Present Illness HPI narrative: Patient is a 69-year-old male who presents to the ER after a dental procedure this morning with concerns he may have swallowed a q-tip like object.He reports he was getting dental implants this morning. The team counted their surgical tools afterwards and 1 of the objects was unaccounted for. Patient denies any acute pain, difficulty breathing, abdominal pain, or other acute abnormalities. He reports ?I just want to get this x-ray and go. Patient also has a laceration on his thumb from an injury several days ago but declines a tetanus immunization. He denies any medical history relevant to this ER visit and reports ?I stopped smoking cigarettes about 5 to 6 years ago. Related Data Home Medications ?Medication ?Instructions ?Recorded ?Confirmed ?Last Taken ?Type Lactobacillus 1 cap PO DAILY 02/27/22 03/23/23 03/20/22 History acidophilus-Bifidobac.animalis 2.5 billion cell capsule (Daily Probiotic) ascorbic acid (vitamin C) 500 mg 500 mg PO DAILY 02/27/22 03/23/23 03/20/22 History capsule garlic 1,000 mg capsule 1,000 mg PO DAILY 02/27/22 03/23/23 03/20/22 History multivitamin with minerals-folic 1 tablet PO DAILY 02/27/22 03/23/23 03/20/22 History acid 0.4 mg tablet Allergies Allergy/AdvReac Type Severity Reaction Status Date / Time No Known Allergies Allergy Verified 10/08/24 09:56 Review of Systems Review of Systems: All systems reviewed & are unremarkable except as noted in HPI and below PMFSH Surgical History Surgical History History of total left knee replacement (~03/27/22) Family History Family History Grandparent Family history of primary malignant neoplasm of liver Family history of coronary artery disease Social History Social History Smoking packs per day: 2 Smoking cigarettes per day: 40.0 Years smoked: 35 Smoking pack-years: 70.00 Smoking status: Former smoker Tobacco type: cigarettes Smoking end date: 03/19/15 Additional smoking assessment comments: DENIES ANY FORM OF TOBACCO USE Alcohol intake: current Drinks per week: 5 Do You Feel Safe in your Home?: Yes Lack of Transportation: No Lack of Food: Never True Current Housing: I Have Housing Concerned About Future Housing: No Difficulty Paying Gas/Electric Bills: No Difficulty Paying for Meds: No Currently Unemployed: No Education: Trade/Vocational Certificate Difficulty w/ Childcare or Family Care: No Living arrangements: other Gender identity (if verbalized by the patient): Male Sexual Orientation (if Verbalized by the Patient): Straight or Heterosexual Spiritual care concerns: No Exam Narrative: GENERAL: Well appearing, well-nourished, non-toxic, in no acute distress. HEAD: Normocephalic, atraumatic. NECK: Supple. No adenopathy, no masses. RESPIRATORY: Airway patent, respirations nonlabored. Clear to auscultation bilaterally, no rales, rhonchi, wheezing. CARDIOVASCULAR: Regular rate and rhythm without murmurs, rubs, or gallops. Peripheral pulses 2+ and equal bilaterally. ABDOMINAL: Soft, nontender, nondistended, no hepatosplenomegaly. Normoactive BS. MUSCULOSKELETAL: Moves all extremities. Strength/ROM intact without gross deformities. SKIN: Warm, dry, normal color. No rashes. NEURO: A&O X3. Speech clear. Cranial nerves II-XII intact. No ataxic movements. PSYCHIATRIC: Appropriate mood and affect. Normal interaction. Course Vital Signs Vital signs: Vital Signs Temperature 36.6 C 10/08/24 09:56 Pulse Rate 53 L 10/08/24 09:56 Respiratory Rate 16 10/08/24 09:56 Blood Pressure 177/65 H 10/08/24 09:56 Pulse Oximetry 99 10/08/24 09:56 Temperature 36.6 C 10/08/24 09:56 Pulse Rate 53 L 10/08/24 09:56 Respiratory Rate 16 10/08/24 09:56 Blood Pressure 177/65 H 10/08/24 09:56 Pulse Oximetry 99 10/08/24 09:56 MDM - Skin/Abscess/Foreign Bdy MDM Narrative Medical decision making narrative: Patient is a 69-year-old male who presents to the ER after a dental procedure this morning with concerns he may have swallowed a q-tip like object.He reports he was getting dental implants this morning. The team counted their surgical tools afterwards and 1 of the objects was unaccounted for. Patient denies any acute pain, difficulty breathing, abdominal pain, or other acute abnormalities. He reports ?I just want to get this x-ray and go. Patient also has a laceration on his thumb from an injury several days ago but declines a tetanus immunization. He denies any medical history relevant to this ER visit and reports ?I stopped smoking cigarettes about 5 to 6 years ago. Imaging Ordered: KUB, chest x-ray Medications Ordered: None necessary, patient declined Results: Patient's chest x-ray and KUB showed no acute cardiopulmonary abnormalities. Diagnosis: Concern for foreign object Patient Education/Shared MDM: Results of imaging shared with patient. He reports he is ready to be discharged home. Patient strongly advised to follow- up with his PCP and dentist as needed. He will not be discharged home with any new prescriptions. Strict return precautions provided. Patient verbalized understanding and is in agreement with plan. Vital signs stable at time of discharge. All questions answered. Differential Diagnosis Differential diagnosis: Likely other (Foreign object, bowel obstruction, pneumonia) Imaging Data Attestation: I personally reviewed and interpreted this imaging study as follows: Radiologist's impression: Impressions Chest X-Ray 10/08/24 13:14 IMPRESSION: 1: NO ACUTE CARDIOPULMONARY DISEASE. Discharge Plan Discharge Clinical Impression: Normal abdominal exam Patient Disposition: Home Condition: Stable Instructions: Antibiotic Form Additional Instructions: There were no abnormalities found on your chest and abdominal x-ray today. Please return to the ER with any worsening symptoms. Follow-up with your primary care provider as needed. Take all regularly scheduled medications as ordered. Patient Language: Romanian Prescriptions: No Action garlic 1,000 mg Capsule 1,000 mg PO DAILY multivit with min-folic acid 0.4 mg Tablet 1 tablet PO DAILY ascorbic acid (vitamin C) 500 mg Capsule 500 mg PO DAILY Daily Probiotic 2.5 billion cell Capsule 1 cap PO DAILY aspirin 81 mg tablet,delayed release (DR/EC) 81 mg PO BID 14 Days Qty: 28 0RF Follow-up/Referrals: Bartolome,Amaury Maddox MD [Primary Care Provider] - Time of Disposition: 13:24
--- OUTSIDE RECORDS SUMMARY | 2024-10-08 12:43 | XMS_ITS | Clinical Summary ---
Author Organization [facility] Address [address] [place] [address] Care Team Providers Care Information Technology Specialist Name Role Phone Unavailable Primary Care Provider Unavailabl e Source Comments [facility],non-owned Affiliates and Associated Physician Practices is amultiple site organization consisting of ambulatory clinics and hospital sitesin [place], [place], [place] and [place]. This disclosure is being madepursuant to the Care Everywhere program and may not contain all information available regarding this patient. 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
--- OUTSIDE RECORDS SUMMARY | 2024-10-08 12:43 | XMS_ITS | Clinical Summary ---
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 He [...] 06/19/2023 Assessment & Plan (01/21/2024 12:48 PM PITCH GATHERER): Blood pressure well controlled patient is tolerating medications renal functions on continue lisinopril 20 mg daily. Assessment & Plan (07/27/2023 3:54 PM CDT): Patient's blood pressures improved now at goal his blood pressure 138/76. Previous visit was 162/74. Will continues gentleman lisinopril 20 mg daily he is tolerating medications. Assessment & Plan (06/19/2023 6:32 PM CDT): Pressure at home consistently running 72740 systolic diastolic running 80-90. Start this patient on lisinopril 20 mg per day see him back in 4-6 weeks. CMP fasting lipid profile request Encounters Date Type Department Care Team Description 07/23/2024 Telephone [facility] [place] at [place] [address] [place] [phone] Candi Agee LPN 07/22/2024 10:30 AM CDT Office Visit [facility] [address] [place] [phone] Amaury Mancuso MD Screening for colon cancer (Primary Dx); Lung nodules; Personal history of nicotine dependence 07/14/2024 10:20 AM CDT Lab [facility] [address] [place] [address] Preventative health care from Last [...] on file Legal Sex Male 11:56 PM PITCH GATHERER Gender Identity Not on file Sexual Orientation [...] Description 01/06/2025 11:00 AM CDT Hospital Encounter [address] [address] Heriberto Gama DO 4 [facility] [place] [address] 01/06/2025 11:00 AM CDT - 01/06/2025 11:30 AM CDT Surgery [address] [address] Heriberto Gama DO 4 [facility] [address] [place] [address] COLONOSCOPY Scheduled Procedures Name Priority Associated Diagnoses [...] was last reviewed 2021. Testing performed by: [facility], [address] [place] [address]., [address] Blood 07/14/2024 10:2 5 AM CDT 07/14/2024 8:51 PM CDT Amaury Mancuso MD LAB BLOOD ORDERABLES Final Result [facility] [address] Department of Laboratories [place] [id number] * Lipid panel (07/14/2024 10:25 AM CDT) [...] last revised on 2017. Testing performed by: [address] [address] Triglycerides 99 <=149 mg/dL [facility] Comment: [...] last revised on 2017. Testing performed by: [facility], [address] [place] [address]., [address] HDL 56 >=40 mg/dL [facility] Comment: Interpretive [...] last revised on 2017. Testing performed by: [facility], [address] [place] [address]., [address] LDL, calculated 109 <=129 mg/dL [facility] Comment: [...] last revised on 2023. Testing performed by: [address] [address] Non-HDL Cholesterol 127 mg/dL [facility] Comment: Interpretive [...] last revised on 2017. Testing performed by: [address] [address] Chol/HDL ratio 3 [facility] Comment:Testing performed by : [address] [address] Blood 07/14/2024 10:2 5 AM CDT 07/14/2024 8:34 PM CDT Amaury Mancuso MD LAB BLOOD ORDERABLES Final Result [facility] [address] Department [place] [address] * (ABNORMAL) Basic metabolic panel (07/14/2024 10:25 AM CDT) [facility] Signature Sodium 133(L) 135 - 145 mmol/L Comment:Testing performed by : [address] [address] Potassium, pl 4.9 3.3 - 4.9 mmol/L [facility] Comment:Testing performed by : [address] [address] Chloride 97 97 - 110 mmol/L [facility] Comment:Testing performed by : [address] [address] CO2 26 22 - 32 mmol/L [facility] Comment:Testing performed by : [address] [place]., [address] Anion gap 10 2 - 15 mmol/L [facility] Comment:Testing performed by : [address] [address] BUN 13 6 - 25 mg/dL [facility] Comment:Testing performed by : [address] [address] Creatinine 0.82 0.80 - 1.30 mg/dL [facility] Comment:Testing performed by : [address] [address] Glucose 108 70 - 199 mg/dL [facility] Comment: Interpretive Data Fasting glucose >/= 126 [...] was last revised 2022. Testing performed by: [facility], [address] [place] [address]., [address] Calcium 9.5 8.5 - 10.3 mg/dL [facility] Comment:Testing performed by : [address] [address] Blood 07/14/2024 10:2 5 AM CDT 07/14/2024 8:34 PM CDT Amaury Mancuso MD LAB BLOOD ORDERABLES Final Result [address] Department [place] [address] * CT Chest WO Contrast F/U Lung [...] Manoj Zarate M.D. KR: BRIAN Report ID: [id number] Reading Location: [id number] Procedure Note Manoj Zarate MD - 01/14/2024 [...] Manoj Zarate M.D. KR: BRIAN Report ID: [id number] Reading Location: [id number] Amaury Mancuso MD IMG CT PROCEDURES Final [...] last revised on 2019. Testing performed by: [facility], [address] [place] [address]., [address] Blood 07/26/2023 10:4 0 AM CDT 07/26/2023 5:10 PM CDT us Amaury Mancuso MD LAB MICROBIOLOGY - GENERAL ORDERABLES Final Result [facility] [address] [facility] Department [place] [address] * US Abdominal Aortic Aneurysm Screening (06/20/2023 [...] Kaelyn Mccullough M.D. TW: BRETT Report ID: [id number] Reading Location: [id number] Procedure Note Kaelyn Mccullough MD - 06/21/2023 [...] Kaelyn Mccullough M.D. TW: BRETT Report ID: [id number] Reading Location: [id number] us Amaury Mancuso MD IMG US PROCEDURES [...] data last revised 21. Testing performed by: [facility], [address] [place] [address]., [address] Blood 06/19/2023 4:05 PM CDT 06/19/2023 9:26 PM CDT us Amaury Mancuso MD LAB BLOOD ORDERABLES Final Result [facility] [address] [address] Department of Laboratories [place] [id number] from Last 3 Months or Most Recently Relevant to Health Maintenance Insurance MEDICARE [facility] Care Teams Director Music Relationship Specialty Start Date End Date Amaury Mancuso MD PCP - General Internal Medicine 06/18/23
--- OUTSIDE RECORDS SUMMARY | 2024-10-08 12:43 | XMS_ITS | Referral Summary ---
Author Organization [facility] [address] [facility] lt Address [address] katelyn [place] [address] Care Team Providers Care Tire Servicer Name Role Phone Amaury Mancuso MD Primary Care Provider +1- [phone] Encounters Date Type Department Care Team Description 07/23/2024 Telephone [facility] Gastroenterology at [place] [address] [facility] [address] [place] [phone] Candi Agee LPN 07/22/2024 10:30 AM CDT Office Visit [facility] [address] [place] [phone] Amaury Mancuso MD Screening for colon cancer (Primary Dx); Lung nodules; Personal history of nicotine dependence 07/14/2024 10:20 AM CDT Lab [facility] 1 [facility] [address] [place] [address] Preventative health care from Last [...] 01/21/2024 Assessment & Plan (01/21/2024 12:50 PM WOUND CARE PHYSICIAN): Recent chest CT scan has been negative patient is due to get a repeat 1 in January 05, 2025 he is so advised of the latest results Lung nodules 07/26/2023 Assessment & Plan (01/21/2024 12:50 PM WOUND CARE PHYSICIAN): Follow-up CT scan overall has been negative [...] 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 Some aches and pains not severe. [...] 06/19/2023 Assessment & Plan (01/21/2024 12:48 PM WOUND CARE PHYSICIAN): Blood pressure well controlled patient is tolerating medications renal functions on continue lisinopril 20 mg daily. Assessment & Plan (07/27/2023 3:54 PM CDT): Patient's blood pressures improved now at goal his blood pressure 138/76. Previous visit was 162/74. Will continues gentleman lisinopril 20 mg daily he is tolerating medications. Assessment & Plan (06/19/2023 6:32 PM CDT): Pressure at home consistently running [address] systolic diastolic running 80-90. Start this patient on lisinopril 20 mg per day see him back in 4-6 weeks. CMP fasting lipid profile request Immunizations Immunization Administration Dates Next Due Influenza, Unspecified 01/21/2024(Deferred: Lenka ent Refused) [employer] SARS-CoV-2 Monovalent Vaccination (12+ Yrs) PURPLE 06/03/2020,05/15/2020 [...] on file Legal Sex Male 11:56 PM WOUND CARE PHYSICIAN Gender Identity Not on file Sexual Orientation [...] Description 01/06/2025 11:00 AM CDT Hospital Encounter [address] [address] Heriberto Gama, [address] [facility] [address] [place] [address] 01/06/2025 11:00 AM CDT - 01/06/2025 11:30 AM CDT Surgery [address] [address] Heriberto Gama DO [address] [facility] [address] [place] [address] COLONOSCOPY Scheduled Procedures Name Priority Associated Diagnoses [...] was last reviewed 2021. Testing performed by: [facility], [address] [place] [address]., [address] Blood 07/14/2024 10:2 5 AM CDT 07/14/2024 8:51 PM CDT us Amaury Mancuso MD LAB BLOOD ORDERABLES Final Result [facility] [address] [facility] Department [place] [address] * Lipid panel (07/14/2024 10:25 [...] last revised on 2017. Testing performed by: [facility], [address] [place] [address]., [address] Triglycerides 99 <=149 mg/dL [facility] Comment: Interpretive Data Ages < or = [...] last revised on 2017. Testing performed by: [facility], [address] [place] [address]., [address] HDL 56 >=40 mg/dL [facility] Comment: Interpretive Data Ages < or = [...] last revised on 2017. Testing performed by: [address] [address] LDL, calculated 109 <=129 mg/dL [facility] Comment: Interpretive Data Ages < or = [...] last revised on 2023. Testing performed by: [address] [address] Non-HDL Cholesterol 127 mg/dL [facility] Comment: [...] last revised on 2017. Testing performed by: [address] [address] Chol/HDL ratio 3 [facility] Comment:Testing performed by : [address] [address] Blood 07/14/2024 10:2 5 AM CDT 07/14/2024 8:34 PM CDT us Amaury Mancuso MD LAB BLOOD ORDERABLES Final Result [facility] [address] Department [place] [address] * (ABNORMAL) Basic metabolic panel (07/14/2024 10:25 AM CDT) Sodium 133(L) 135 - 145 mmol/L Comment:Testing performed by : [facility], [address] [place] [address]., [address] Potassium, pl 4.9 3.3 - 4.9 mmol/L [facility] Comment:Testing performed by : [facility], [address] [place] [address]., [address] Chloride 97 97 - 110 mmol/L [facility] Comment:Testing performed by : [facility], [address] [place] [address]., [address] CO2 26 22 - 32 mmol/L [facility] Comment:Testing performed by : [facility], [address] [place] [address], [address] Anion gap 10 2 - 15 mmol/L [facility] Comment:Testing performed by : [facility], [address] [place] [address], [address] BUN 13 6 - 25 mg/dL [facility] Comment:Testing performed by : [facility], [address] [place] [address], [address] Creatinine 0.82 0.80 - 1.30 mg/dL [facility] Comment:Testing performed by : [facility], [address] [place] [address], [address] Glucose 108 70 - 199 mg/dL [facility] [...] was last revised 2022. Testing performed by: [facility], [address] [place] [address]., [address] Calcium 9.5 8.5 - 10.3 mg/dL [facility] Comment:Testing performed by : [address], [address] Blood 07/14/2024 10:2 5 AM CDT 07/14/2024 8:34 PM CDT us Amaury Mancuso MD LAB BLOOD ORDERABLES Final Result [facility] [address] Department [place] [address] * CT Chest WO Contrast F/U Lung [...] Manoj Zarate M.D. KR: KR Report ID: [id number] Reading Location: [place] [address] Procedure Note Manoj Zarate MD - 01/14/2024 [...] Manoj Zarate M.D. KR: KR Report ID: [id number] Reading Location: [place] [address] Amaury Mancuso MD IMG CT PROCEDURES Final [...] last revised on 2019. Testing performed by: [facility], [address] [place] [address]., [address] Blood 07/26/2023 10:4 0 AM CDT 07/26/2023 5:10 PM CDT Amaury Mancuso MD LAB MICROBIOLOGY - GENERAL ORDERABLES Final Result Performing Organization Address City/State/[facility] Co de Phone Number [facility] [address] [facility] [place] [address] * US Abdominal Aortic Aneurysm Screening (06/20/2023 [...] Kaelyn Mccullough M.D. TW: BRETT Report ID: [id number] Reading Location: [id number] Procedure Note Kaelyn Mccullough MD - 06/21/2023 [...] Kaelyn Mccullough M.D. TW: BRETT Report ID: [id number] Reading Location: [place] [address] us Amaury Mancuso MD IMG US PROCEDURES [...] data last revised 21. Testing performed by: [facility], [address] [place] [address]., [address] Blood 06/19/2023 4:05 PM CDT 06/19/2023 9:26 PM CDT us Amaury Mancuso MD LAB BLOOD ORDERABLES Final Result [facility] [address] [facility] Department [place] [address] from Last 3 Months or Most Recently Relevant to Health Maintenance Insurance MEDICARE [facility] Care Teams Tire Servicer Relationship Specialty Start Date End Date Amaury Mancuso MD PCP - General Internal Medicine 06/18/23
== END 2024-10-08 13:51 | disposition home or self-care (01) ==
PROVIDERS: Emergency Provider Registered Nurse; PCP Internal Medicine
DX: Z03.821 Encounter for observation for suspected ingested foreign body ruled out (principal); Z87.891 Personal history of nicotine dependence; Z96.652 Presence of left artificial knee joint
CPT/HCPCS: 71046; 74018; 99283